=== PATIENT | female | born 1990 | race Two or more races ===

== ENCOUNTER 2025-07-25 23:46 | Emergency (ER) | payer MEDICAID, OTHER ==
[~2025-07-25] VITALS: Ht 162.6 cm; Wt 63.3 kg
--- NOTE | 2025-07-26 00:15 | ED.PDOC ---
History of Present Illness HPI Comments 34-year-old female who came to ER for abdominal pain. At about 9:00 p.m. tonight, patient developed sudden onset right-sided abdominal pain, constant, nonradiating, worse with movements associated with nausea and vomiting. Denies any urinary symptoms. Denies any abdominal surgeries. Denies any possibility of REVIEW OF SYSTEMS: General: No fever, no chills, or fatigue HEENT: No sore throat, no earache, no congestion, no neck pain. Cardiac: No chest pain. No palpitations. Lungs: No shortness of breath, no cough. GI: (+) nausea, (+) vomiting, no diarrhea, no constipation, (+) abdominal pain : No dysuria, frequency, or urgency. No hematuria. Musculoskeletal: No joint pain , no joint swelling, no extremity edema. Skin: No rash, no itching. Neuro: No headache, no dizziness, no weakness EXAM: General: Awake, alert and oriented. No acute distress. Skin: Skin in warm, dry and intact. Appropriate color for ethnicity. HEENT: The head is normocephalic and atraumatic. Conjunctivae are clear without exudates or hemorrhage. Sclera is non-icteric. EOM are intact. No signs of nystagmus. Eyelids are normal in appearance without swelling or lesions. Oral mucosa is pink and moist Neck: The neck is supple with normal range of motion. No JVD. Cardiac: Heart rate and rhythm are normal. No murmurs, gallops, or rubs are auscultated. Respiratory: No signs of respiratory distress. Lung sounds are clear in all lobes bilaterally without rales, rhonchi, or wheezes. Abdominal: Abdomen is soft, right flank tenderness. Mild right CVA tenderness. Extremities: Upper and lower extremities are atraumatic in appearance without deformity or edema. Neurological: The patient is awake, alert and oriented to person, place, and time with normal speech. Speech is clear. There is no facial asymmetry. Normal gait. Psychiatric: Appropriate mood and affect. 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 Was a procedure done?: No Differential Dx Considerations may include: Gastritis, appendicitis, kidney stones, gallstones, other X-Ray, Labs, Meds, VS Vital Signs Date Time Temp Pulse Resp B/P (MAP) Pulse Ox O2 Delivery O2 Flow Rate FiO2 07/26/25 01:25 98.7 68 17 100/67 (78) 99 98.7 07/26/25 01:14 Room Air* 0 21 07/25/25 23:47 98.0 99 18 124/92 99 98.0 Lab Test 07/26/25 01:16 07/26/25 00:10 Range/Units Urine Color Light-yellow Yellow Urine Clarity Clear Clear Urine pH 8.0 5.0-9.0 Urine Specific [place] 1.014 1.001-1.035 Urine Protein Negative Negative Urine Ketones Negative Negative Urine Blood 3+ H Negative /uL Urine Nitrite Negative Negative Urine Bilirubin Negative Negative Urine Urobilinogen Normal Negative mg/dL Urine Leukocyte Esterase Trace Negative /uL Urine RBC 70 0 - 4 /hpf Urine Microscopic WBC 5 0-5 /HPF Urine Squamous Epithelial Cells Few <5 /hpf Urine Bacteria None seen None Seen /hpf Urine Mucus Few None Seen Urine Glucose Normal Normal mg/dL White Blood Count 10.9 H 4.4-10.8 10^3/uL Red Blood Count 4.56 4.0-5.20 10^6/uL Hemoglobin 12.7 12.2-16.2 g/dL Hematocrit 37.9 36.0-46.0 % Mean Corpuscular Volume 83.0 80.0-100.0 fL Mean Corpuscular Hemoglobin 27.8 L 28.0-32.0 pg Mean Corpuscular Hemoglobin Concent 33.5 32.0-36.0 g/dL Red Cell Distribution Width 17.9 H 11.8-14.3 % Platelet Count 397 140-450 10^3/uL Mean Platelet Volume 8.4 6.9-10.8 fL Neutrophils (%) (Auto) 78.4 37.0-80.0 % Lymphocytes (%) (Auto) 15.4 10.0-50.0 % Monocytes (%) (Auto) 4.9 0.0-12.0 % Eosinophils (%) (Auto) 0.5 0.0-7.0 % Basophils (%) (Auto) 0.8 0.0-2.0 % Neutrophils # (Auto) 8.6 1.6-8.6 10 ^3/uL Lymphocytes # (Auto) 1.7 0.4-5.4 10 ^3/uL Monocytes # (Auto) 0.5 0-1.3 10 ^3/uL Eosinophils # (Auto) 0.1 0-0.8 10 ^3/uL Basophils # (Auto) 0.1 0-0.2 10 ^3/uL Nucleated Red Blood Cells 0.0 % Sodium Level 141 136-145 mmol/L Potassium Level 3.9 3.5-5.1 mmol/L Chloride Level 102 98-107 mmol/L Carbon Dioxide Level 28 20-31 mmol/L Anion Gap 11 5-15 Blood Urea Nitrogen 12 9-23 mg/dL Creatinine 0.84 0.550-1.02 mg/dL Glomerular Filtration Rate Calc 95 >90 mL/min BUN/Creatinine Ratio 14.3 10.0-20.0 Serum Glucose 125 H 74-106 mg/dL Calcium Level 9.7 8.7-10.4 mg/dL Current Medications Medications (Trade) Dose Ordered Sig/Abdelrahman Route Start Time Stop Time Status Last Admin Ketorolac Tromethamine (Toradol Injection) 15 mg ONCE ONCE IV 07/26/25 00:15 07/26/25 00:16 DC 07/26/25 01:13 Sodium Chloride 1,000 ml @ 1,000 mls/hr Q1H ONCE IV 07/26/25 00:15 07/26/25 01:14 DC 07/26/25 01:14 Ondansetron HCl (Zofran) 4 mg ONCE ONCE IV 07/26/25 00:15 07/26/25 00:16 DC 07/26/25 01:13 Exam: CT CT AB PEL WO CON-NO ORAL OR IV History: Right lower quadrant/right flank pain Comparison Study: None TECHNIQUE: Multidetector CT of the abdomen and pelvis was performed from lung bases to pubic symphysis. Imaging was performed without IV contrast. Axial, coronal, and sagittal multiplanar reformats were obtained from the axial data set by the technologist. RADIATION DOSE: CTDI vol 5.44 mGy. DLP 318.89 mGy.cm Findings: Limited evaluation of the solid organs in the absence of IV contrast. Evaluation is also degraded by motion artifact. Lungs: The lung bases are clear. Liver: Unremarkable. Spleen: Unremarkable. Pancreas: Unremarkable. Gallbladder: Unremarkable. Adrenals: Unremarkable Kidneys: There is a 3 mm calculus situated in the expected region of the distal right ureter with suboptimally assessed right-sided hydroureteronephrosis. 4 mm nonobstructing right renal calculus. Pelvic Viscera: Unremarkable. Vasculature: Unremarkable. Retroperitoneum: Unremarkable. Bowel: No bowel obstruction. The appendix is normal. Musculoskeletal: Unremarkable. Soft tissues: Unremarkable Impression: 1. 3 mm calculus situated in the expected region of the distal right ureter with suboptimally assessed right-sided hydroureteronephrosis. 2. 4 mm nonobstructing right renal calculus. Time of 1ST Reevaluation: 00:08 Reevaluation 1ST: Unchanged Patient Education/Counseling: Need For Follow Up Family Education/Counseling: No Family Present SEPSIS Sepsis Screen Date sepsis recognized/suspect: Jul 25, 2025 Time Sepsis recognized/suspect: 2348 Recent Procedure: No On Antibiotic Therapy: No Respiratory Rate >20: No Heart Rate >90: Yes Temp<36 C (96.8 F) or >38.3 C: No SBP <90 or MAP <65 mmHG: No New Acute Mental Status Change: No Is the patient on CPAP, BIPAP,: No Physician Orders Ct Ab Pel Wo Con-No Oral Or Iv (07/26/25 00:07) Vital Signs Date Time Temp Pulse Resp B/P (MAP) Pulse Ox O2 Delivery O2 Flow Rate FiO2 07/26/25 01:25 98.7 68 17 100/67 (78) 99 98.7 07/26/25 01:14 Room Air* 0 21 07/25/25 23:47 98.0 99 18 124/92 99 98.0 Laboratory Tests Test 07/26/25 00:10 White Blood Count 10.9 10^3/uL (4.4-10.8) H Medications Medications Dose Ordered Sig/Abdelrahman Route Start Time Stop Time Status Last Admin Dose Admin Ketorolac Tromethamine 15 mg ONCE ONCE IV 07/26/25 00:15 07/26/25 00:16 DC 07/26/25 01:13 Ondansetron HCl 4 mg ONCE ONCE IV 07/26/25 00:15 07/26/25 00:16 DC 07/26/25 01:13 Sodium Chloride 1,000 ml @ 1,000 mls/hr Q1H ONCE IV 07/26/25 00:15 07/26/25 01:14 DC 07/26/25 01:14 Departure 1 Departure Time of Disposition: 03:36 Impression: Primary Impression: Kidney stone Disposition: HOME / SELF CARE / HOMELESS Condition: Stable Additional Instructions: ED DISCHARGE INSTRUCTIONS Instructions: Please read all instructions provided in this packet carefully. Although you have been discharged from the Emergency Department, this does not mean that you have a "clean bill of health". It is possible that you are in the process of developing a serious illness. This is why you must return to the ED without fail if any new or worsening symptoms (especially if your symptoms include chest pain, trouble breathing, abdominal pain, fever, headache, confusion, trouble seeing, or trouble walking) It is also very important that you see a primary care provider (PCP) within the next 3-5 days to follow up. If you are unable to get an appointment, return to the ED for re-evaluation. A copy of your CAT scan results is included below. Please keep this packet and take it to your next follow up visit. Kidney Stone: Care Instructions Kidney stones are formed when salts, minerals, and other substances normally found in the urine clump together. They can be as small as grains of sand or, rarely, as large as golf balls. While the stone is traveling through the ureter, which is the tube that carries urine from the kidney to the bladder, you will probably feel pain. The pain may be mild or very severe. You may also have some blood in your urine. As soon as the stone reaches the bladder, any intense pain should go away. If a stone is too large to pass on its own, you may need a medical procedure to help you pass the stone. The doctor has checked you carefully, but problems can develop later. If you notice any problems or new symptoms, get medical treatment right away . Follow-up care is a enrique part of your treatment and safety. Be sure to make and go to all appointments, and call your doctor if you are having problems. It's also a good idea to know your test results and keep a list of the medicines you take. How can you care for yourself at home? Drink plenty of fluids. If you have kidney, heart, or liver disease and have to limit fluids, talk with your doctor before you increase the amount of fluids you drink. Be safe with medicines. Read and follow all instructions on the label. If you are not taking a prescription pain medicine, ask your doctor if you can take an [id number] medicine. Nonsteroidal anti-inflammatory drugs (NSAIDs), such as ibuprofen (Advil, Motrin), may help with the pain. If the doctor gave you a prescription medicine for pain, take it as prescribed. Store your prescription pain medicines where no one else can get to them. When you are done using them, dispose of them quickly and safely. Your local pharmacy or hospital may have a drop-off site. Your doctor may ask you to strain your urine so that you can collect your kidney stone when it passes. You can use a kitchen strainer or a tea strainer to catch the stone. Store it in a plastic bag until you see your doctor again. Preventing future kidney stones Some changes in your diet may help prevent kidney stones. Depending on the cause of your stones, your doctor may recommend that you: Drink plenty of fluids. If you have kidney, heart, or liver disease and have to limit fluids, talk with your doctor before you increase the amount of fluids you drink. Try to drink mostly water. Limit grapefruit juice and sugar-sweetened beverages like soda. Do not take more than the recommended daily dose of vitamins C and D. Avoid antacids such as Maalox, Mylanta, or Tums. Limit the amount of salt (sodium) in your diet. Eat a variety of healthy foods. Include plenty of fruits and vegetables. You may need to limit animal protein for certain types of kidney stones. If you're worried about getting enough protein, try replacing animal protein sources with plant-based sources like dried peas and lentils. Limit foods that are high in a substance called oxalate, which can cause kidney stones. These foods include dark green vegetables, rhubarb, chocolate, wheat bran, nuts, cranberries, and beans. When should you call for help? Contact your doctor now or seek immediate medical care if: You cannot keep down fluids. Your pain gets worse. You have a fever or chills. You have new or worse pain in your back just below your rib cage (the flank area). You have new or more blood in your urine. You have new or worse pain or burning when you urinate. You have new or worse trouble urinating. Watch closely for changes in your health, and be sure to contact your doctor if: You do not get better as expected. Credits for Kidney Stone: Care Instructions Current as of: December 22, 2024 Author: [employer] Staff Clinical Review Board All [employer] education is reviewed by a team that includes physicians, nurses, advanced practitioners, registered dieticians, and other healthcare professionals. PROCEDURE(s): ABPL - CT AB PEL WO CON-NO ORAL OR IV REASON: Right lower quadrant/right flank pain ORDER NUMBER(s): [id number], ACCESSION NUMBER(s): [id number] Exam: CT CT AB PEL WO CON-NO ORAL OR IV History: Right lower quadrant/right flank pain Comparison Study: None TECHNIQUE: Multidetector CT of the abdomen and pelvis was performed from lung bases to pubic symphysis. Imaging was performed without IV contrast. Axial, coronal, and sagittal multiplanar reformats were obtained from the axial data set by the technologist. RADIATION DOSE: CTDI vol 5.44 mGy. DLP 318.89 mGy.cm Findings: Limited evaluation of the solid organs in the absence of IV contrast. Evaluation is also degraded by motion artifact. Lungs: The lung bases are clear. Liver: Unremarkable. Spleen: Unremarkable. Pancreas: Unremarkable. Gallbladder: Unremarkable. Adrenals: Unremarkable Kidneys: There is a 3 mm calculus situated in the expected region of the distal right ureter with suboptimally assessed right-sided hydroureteronephrosis. 4 mm nonobstructing right renal calculus. Pelvic Viscera: Unremarkable. Vasculature: Unremarkable. Retroperitoneum: Unremarkable. Bowel: No bowel obstruction. The appendix is normal. Musculoskeletal: Unremarkable. Soft tissues: Unremarkable Impression: 1. 3 mm calculus situated in the expected region of the distal right ureter with suboptimally assessed right-sided hydroureteronephrosis. 2. 4 mm nonobstructing right renal calculus. e-Prescriptions Acetaminophen (Acetaminophen) 500 Mg Tab 1000 MG PO TIDPRN PRN for 5 Days, #30 TAB Prov: TRENT BENSON MD 07/26/25 Tamsulosin Hcl (Flomax) 0.4 Mg Cap 1 CAP PO DAILY, #7 CAP 11 Refills Prov: TRENT BENSON MD 07/26/25 Ketorolac Tromethamine (Ketorolac Tromethamine) 10 Mg Tab 1 TAB PO TID, #15 TAB Prov: TRENT BENSON MD 07/26/25 Comments MDM: 34-year-old female with 3 mm right ureteral stone. No sign of UTI on urinalysis. Patient is well-appearing, nontoxic. Patient's symptoms improved during the ED observation. Vital signs stable. Patient is felt stable for discharge home. Patient advised to follow up with primary care provider promptly and return to the emergency department with any new, worsening or concerning symptoms. I reviewed the following notes from the pt's past medical encounters: N/A The following tests were ordered, and results were reviewed by me: (See diagnostic results section) The following test were independently interpreted by me: N/A Additional information was gathered from interviewing the following independent historians: N/A I reviewed and agreed with the following test results read by other providers: CT abdomen and pelvis without contrast I discussed treatments and results with patient Decision regarding hospitalization or escalation of hospital level of care: Ri sks and benefits of admission for further treatment of patient's condition was considered however due to patient's stable condition patient will be discharged to follow up closely or return to care for worsening of condition or inability to follow up. Critical Care Note Critical Care Time?: No Stability Stability form required: No Heart Score Heart Score: Heart Score Response (Comments) Value History N/A 0 EKG N/A 0 Age N/A 0 Risk Factors N/A 0 Troponin N/A 0 Total 0 I personally scribed for TRENT BENSON MD ([email or web address]) on 07/26/25 at 00:15. Electronically submitted by Junior Love ([email or web address]). I personally scribed for TRENT BENSON MD ([email or web address]) on 07/26/25 at 02:26. Electronically submitted by Junior Love ([email or web address]). TRENT BENSON MD Jul 26, 2025 00:15
[2025-07-26 00:47] LABS: Hematocrit 37.9 % (36.0-46.0); Hemoglobin 12.7 g/dL (12.2-16.2); Mean Corpuscular Hemoglobin 27.8 pg (28.0-32.0); Mean Corpuscular Volume 83.0 fL (80.0-100.0); Nucleated Red Blood Cells % 0.0 %
[2025-07-26 00:52] LABS: Chloride 102 mmol/L (98-107); Potassium 3.9 mmol/L (3.5-5.1); Sodium 141 mmol/L (136-145)
[2025-07-26 00:53] LABS: Anion Gap 11 (5-15); Carbon Dioxide 28 mmol/L (20-31)
[2025-07-26 00:54] LABS: Calcium 9.7 mg/dL (8.7-10.4)
[2025-07-26 00:59] LABS: BUN/Creatinine Ratio 14.3 (10.0-20.0); Blood Urea Nitrogen 12 mg/dL (9-23)
[2025-07-26 01:05] LABS: Glucose 125 mg/dL (74-106)
[2025-07-26] MEDS: KETOROLAC TROMETH 30 MG/ML 1ML VIAL IV ONE (01:13)
[2025-07-26] MEDS: ONDANSETRON HCL 4 MG/2 ML VIAL IV ONE (01:13)
[2025-07-26] MEDS: SODIUM CHLORIDE 0.9% 1,000 ML IV ONE (01:14)
--- NOTE | 2025-07-26 01:40 | DVH ---
Exam: CT CT AB PEL WO CON-NO ORAL OR IV History: Right lower quadrant/right flank pain Comparison Study: None TECHNIQUE: Multidetector CT of the abdomen and pelvis was performed from lung bases to pubic symphysis. Imaging was performed without IV contrast. Axial, coronal, and sagittal multiplanar reformats were obtained from the axial data set by the technologist. RADIATION DOSE: CTDI vol 5.44 mGy. DLP 318.89 mGy.cm Findings: Limited evaluation of the solid organs in the absence of IV contrast. Evaluation is also degraded by motion artifact. Lungs: The lung bases are clear. Liver: Unremarkable. Spleen: Unremarkable. Pancreas: Unremarkable. Gallbladder: Unremarkable. Adrenals: Unremarkable Kidneys: There is a 3 mm calculus situated in the expected region of the distal right ureter with suboptimally assessed right-sided hydroureteronephrosis. 4 mm nonobstructing right renal calculus. Pelvic Viscera: Unremarkable. Vasculature: Unremarkable. Retroperitoneum: Unremarkable. Bowel: No bowel obstruction. The appendix is normal. Musculoskeletal: Unremarkable. Soft tissues: Unremarkable Impression: 1. 3 mm calculus situated in the expected region of the distal right ureter with suboptimally assessed right-sided hydroureteronephrosis. 2. 4 mm nonobstructing right renal calculus.
[2025-07-26] MEDS: MORPHINE SULFATE INJ 2 MG/ml SYRG IV ONE (02:13)
[2025-07-26 03:14] LABS: Urine Protein, UAD Negative (Negative)
[2025-07-26] MEDS ORDERED: ACET500T58 PO (03:38)
[2025-07-26] MEDS ORDERED: KETO10TA PO (03:38)
[2025-07-26] MEDS ORDERED: TAMS-35 PO (03:38)
[2025-07-26 03:55] VITALS: BP 111/70; PULSE 74; RESP 14; TEMP 98.5; O2SAT 98
== END 2025-07-26 04:00 | disposition home or self-care (01) ==
LOC: ER 23:46
DX: N13.2 Hydronephrosis with renal and ureteral calculous obstruction (principal); Z98.51 Tubal ligation status; Z79.899 Other long term (current) drug therapy
CPT/HCPCS: 36415; 74176; 80048; 81001; 85025; 96361; 96374; 96375; 99285; J1885; J2405; J7030